=== PATIENT | female | born 2000 | race Two or more races ===

== ENCOUNTER 2023-01-05 18:26 | Emergency (ER) | payer OTHER ==
[~2023-01-05] VITALS: Ht 160 cm; Wt 59.9 kg
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
[2023-01-05 22:30] VITALS: BP 123/78
== END 2023-01-05 22:31 ==
LOC: ER 18:41
DX: S50.811A Abrasion of right forearm, initial encounter (principal); Z60.2 Problems related to living alone; V89.2XXA Person injured in unspecified motor-vehicle accident, traffic, initial encounter; Y93.89 Activity, other specified; Y92.89 Other specified places as the place of occurrence of the external cause; Y99.8 Other external cause status
CPT/HCPCS: 70450-TC; 71045-TC; 72125-TC; 73080-TC; 73090-TC; 73110; 84703-TC

== ENCOUNTER 2024-01-26 04:53 | Emergency (ER) | payer MEDICAID, OTHER ==
[~2024-01-26] VITALS: Ht 160 cm; Wt 54.4 kg
[2024-01-26 05:03] VITALS: BP 155/89; TEMP 98.4; O2SAT 98
[2024-01-26] MEDS ORDERED: CHLO25CA22 PO (09:34)
== END 2024-01-26 05:49 | disposition home or self-care (01) ==
LOC: ER 05:00
DX: F10.10 Alcohol abuse, uncomplicated (principal); F31.9 Bipolar disorder, unspecified; Z60.2 Problems related to living alone; Y90.0 Blood alcohol level of less than 20 mg/100 ml

== ENCOUNTER 2024-01-26 07:48 | Emergency (ER) | payer BC, MEDICAID ==
[~2024-01-26] VITALS: Ht 160 cm; Wt 56.2 kg
[2024-01-26 07:52] VITALS: BP 125/78; TEMP 98.4
[2024-01-26] MEDS ORDERED: LORAZEPAM 1 MG TABLET ONE (08:07)
[2024-01-26] MEDS: LORAZEPAM 1 MG TABLET PO ONE (08:22)
[2024-01-26] MEDS ORDERED: CHLO25CA22 PO (09:34)
[2024-01-26 09:40] VITALS: O2SAT 98
== END 2024-01-26 09:40 | disposition home or self-care (01) ==
LOC: ER 07:48
DX: F10.129 Alcohol abuse with intoxication, unspecified (principal); F31.9 Bipolar disorder, unspecified; Z60.2 Problems related to living alone; Y90.9 Presence of alcohol in blood, level not specified